=== PATIENT | female | born 1990 | race Caucasian/White ===

== ENCOUNTER 2020-09-14 13:29 | Outpatient (REF) | payer OTHER, SELFPAY ==
[2020-09-14 16:18] LABS: HCG Quantitative < 2 mIU/mL; Thyroid Stimulating Hormone 1.38 uIU/mL (0.32-4.0)
[2020-09-15 21:11] LABS: Follicle Stimulating Hormone 5.7 mIU/mL; Prolactin 3.3 ng/mL
[2020-09-17 17:06] LABS: DHEA Sulfate 248 mcg/dL (18-391)
[2020-09-20 21:36] LABS: Testosterone, Free 5.6 pg/mL (0.1-6.4); Testosterone, Total 30 ng/dL (2-45)
== END 2020-09-14 13:30 | disposition home or self-care (01) ==
LOC: HO.LAB 13:29
PROVIDERS: Visit Provider Advanced Practice Midwife
DX: N92.6 Irregular menstruation, unspecified (principal); L68.0 Hirsutism; B37.3 Candidiasis of vulva and vagina; L73.9 Follicular disorder, unspecified; Z87.42 Personal history of other diseases of the female genital tract; Z30.011 Encounter for initial prescription of contraceptive pills
CPT/HCPCS: 36415; 82627; 83001; 83498; 84146; 84402; 84403; 84443; 84702; 99202

== ENCOUNTER → 2020-09-18 15:16 | Outpatient (BNVA) | payer OTHER, SELFPAY | PROVIDERS: Visit Provider Obstetrics & Gynecology ==

== ENCOUNTER → 2020-10-08 09:54 | Outpatient (BNVA) | payer OTHER, SELFPAY | PROVIDERS: Visit Provider Advanced Practice Midwife ==

== ENCOUNTER → 2020-11-26 10:51 | Outpatient (BNVA) | payer OTHER, SELFPAY | PROVIDERS: Visit Provider Obstetrics & Gynecology | DX: Z13.89 Encounter for screening for other disorder (principal) | CPT/HCPCS: 99212 ==

== ENCOUNTER 2020-11-29 12:30 | Outpatient (REF) | payer OTHER, SELFPAY ==
--- NOTE | 2020-11-29 16:35 | MHC.AU.HAS ---
Hearing Aid Evaluation Date of Visit: 11/29/20 Historical Information: Description of Hearing: Normal sloping to a moderate to severe SNHL in the left ear. Mild to moderate conductive/mixed hearing loss sloping to a severe to profound SNHL hearing loss in the right ear. 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 She did not like the large earmolds she used as a child and had problems with the domes on her most recent hearing aids falling out. Recommending slim tip style molds. Also, patient gets frequent ear infections with drainage and debris. Recommending slim tube style aids, as RICHARD may break more easily due to drainage. Hearing Aid Prescription: Based on the individual?s shared listening needs, communication environments, dexterity, desire for connectivity, and personal preferences, the following prescription for amplification has been made: Right ear: Installer Technician: Phonak Model: Billy M70-CT Battery Size: Rechargeable Color: T3- Micaela Manawa Tubing: Size 1 slim tube Type of Mold: Slim tip Left ear: Left ear prescription to be same as Right Hearing Aid above: Installer Technician: Phonak Model: Billy M70-CT Battery Size: Rechargeable Color: T3- Micaela Manawa Tubing: Size 1 slim tube Type of Mold: Slim tip Action Taken/Action Needed: Earmold Impressions Taken. Medical Clearance to be requested from PCP/ENT. Hearing Fitting to be scheduled when materials arrive Primary Diagnosis: H90.3 Bilateral Sensorineural Hearing Loss Signature: Provider: Rosalva Coyle, CCC-A
--- NOTE | 2020-11-29 16:36 | MHC.AU.ANH ---
Adult Audiological Evaluation Date of Visit: 11/29/20 Reason for Appointment: Audiological evaluation to evaluate the status of Ms. Navarro's hearing and to pursue new hearing aids. Ms. Navarro reports a bilateral hearing loss, worse in her right ear, that is congenital in nature in has been attributed to the prematurity of her . She has previously used hearing aids, with the last set from a clinic in [place] ~4-5 years ago, but has since lost them. Previous Hearing Test Results: At a clinic in [place] ~ 2 years ago. Results not available to be reviewed today. Ear History: Recent Ear Drainage: Both Ears Recent Ear Infections: Both ears, most recent 3 weeks ago Ear Infections in Childhood: Both Ears Previous Ear Surgery: PE tubes at age 8 and age 15 Medical History: Medical History: Right eye buckle surgery 2016, Gall bladder removal 2016 Otoscopy: Right Ear: Cerumen and debris build-up in canal. Unable to view TM. Left Ear: Unremarkable Tympanometry: Tympanometry performed due to: History of middle ear dysfunction Right Ear: Non-compliant Middle Ear System (Type B) Left Ear: Normal Middle Ear System (Type A) Hearing Evaluation: Transducer(s) Used: Insert Earphones, Bone Conduction Method: Conventional Audiometry Stimuli Used: Pure Tones Right Ear: Description of Hearing: Mild hearing loss at 250 Hz, mild conductive hearing loss at 500 Hz, moderately severe mixed hearing loss at 750-1000 Hz, moderately severe sensorineural hearing loss at 1500 Hz, severe sensorineural hearing loss at 2000 Hz, and a profound hearing loss at 9742-7280 Hz. Left Ear: Description of Hearing: Normal hearing from 250-1500 Hz, sloping to a moderate sensorineural hearing loss at 2000 Hz, a severe sensorineural hearing loss at 9209-4926 Hz, and rising to a moderately severe hearing loss at 8000 Hz. Speech Recognition Threshold (SRT): Method Used: Monitored Live Voice Stimuli Used: Spondee Words Right Ear: 50 dBHL Left Ear: 10 dBHL Word Discrimination: Method: Recorded Lists Word Lists Used: NU-6 Right Ear: 80% at 85 dBHL Left Ear: 100% at 70 dBHL Recommendations: Audiological re-evaluation in one year. Trial with amplification is recommended. Medical clearance from a physician is required before fitting. Hearing Aid Fitting will be scheduled when all materials arrive. Referral to Ear, Nose, and Throat to address middle ear dysfunction. Diagnosis: Primary Diagnosis: H90.3 Bilateral Sensorineural Hearing Loss Services Performed: Comprehensive Audiological Evaluation (CPT 73021) Tympanometry (CPT 89442) Signature: Provider: Rosalva Coyle, CCC-A
--- NOTE | 2020-11-29 16:38 | MHC.AU.MED ---
Medical Clearance for Hearing Instrumentation Date: 11/30/20 Patient Name: Shagufta Navarro Date of : 1990 Referring Provider: Sushma Gomes MD We have seen your patient on 11/30/20 and have determined that they are a candidate for amplification (See accompanying report). Specifically, they would benefit from: Hearing aid use in both ears There is a statute that addresses Medical Evaluation Requirements prior to fitting a patient with a hearing aid. According to [place] statute 265 CMR:6.03(1), (a) General. Except as provided in 265 CMR 6.03(1)(b), a teacher of the hearing impaired shall not sell a hearing aid unless the prospective user has presented to the teacher of the hearing impaired a written statement signed by a licensed physician that states that the patient's hearing loss has been medically evaluated and the patient may be considered a candidate for a hearing aid. The medical evaluation must have taken place within the preceding six months. Please note: Due to the [place] Statute referenced above, we cannot accept a signature other than that of a licensed physician. ELEVATOR EXAMINER and PA signatures cannot be accepted. I am in agreement with the above recommendation. There is no medical contraindication for hearing instrumentation. Physician Signature Date Physician Name (Printed)
== END 2020-11-29 12:31 | disposition home or self-care (01) ==
LOC: HO.SH 12:30
PROVIDERS: Visit Provider Internal Medicine
DX: Z46.1 Encounter for fitting and adjustment of hearing aid (principal); H90.3 Sensorineural hearing loss, bilateral
CPT/HCPCS: 92557; 92567; 92591; V5275

== ENCOUNTER 2020-12-20 10:42 | Outpatient (REF) | payer OTHER, SELFPAY | END 2020-12-20 10:43 | disposition home or self-care (01) | LOC: HO.HAP 10:42 | PROVIDERS: Visit Provider Internal Medicine | DX: Z46.1 Encounter for fitting and adjustment of hearing aid (principal); H90.3 Sensorineural hearing loss, bilateral | CPT/HCPCS: V5011; V5020; V5160; V5261; V5264 ==

== ENCOUNTER → 2020-12-21 10:53 | Outpatient (BNVA) | payer OTHER, SELFPAY | PROVIDERS: PCP Internal Medicine; Visit Provider Obstetrics & Gynecology | DX: Z30.09 Encounter for other general counseling and advice on contraception (principal) | CPT/HCPCS: 99212 ==

== ENCOUNTER 2020-12-27 07:09 | Day surgery (SDC) | payer OTHER, SELFPAY ==
--- NOTE | 2020-12-26 10:15 | HO.ANESPROP2 ---
Documented by User: Brianna Jurado 12/26/20 10:15 HPI - Anesthesia Eval Consult details Narrative: 30yo F for Bilateral Salpingectomy Laparoscopic PMFSH Active Problems Active Problems: All Active Problems (Updated 12/26/20 @ 09:01 by Miranda Morin MD) Unwanted fertility (Acute) Hearing loss (Acute) Family planning (Acute) History of PCOS (Acute) BCP ( control pills) initiation (Acute) Acute folliculitis (Acute) Yeast infection involving the vagina and surrounding area (Acute) Past Medical History Medical History Hearing loss Family History Family History Father No problems noted. Mother No problems noted. Maternal Grandmother Myocardial infarction Surgical History Surgical History History of cholecystectomy History of retinal detachment Social History Social History Alcohol intake: never Patient Tobacco Use Status: Never used Tobacco Use of substances other than those prescribed or required for medical reasons: No Have you been hit, kicked, punched, or otherwise hurt by someone within the past year? If so, by whom?: No Are you DNR?: No Advance Directives: No Advance Directives Information Provided: Yes Sexual orientation: Straight/Heterosexual Gender identity: female Meds Allergies Allergy/AdvReac Type Severity Reaction Status Date / Time No Known Allergies Allergy Verified 12/21/20 11:01 Exam Exam Date and Time: December 26, 2020 101 Assessment and Plan Assessment Anesthesia Assessment: Chart Reviewed Documented by User: Siri Ramirez 12/27/20 08:13 PMFSH Past Medical History Medical History Hearing loss Family History Family History Father No problems noted. Mother No problems noted. Maternal Grandmother Myocardial infarction Surgical History Surgical History History of cholecystectomy History of retinal detachment Social History Social History Alcohol intake: never Patient Tobacco Use Status: Never used Tobacco Use of substances other than those prescribed or required for medical reasons: No Have you been hit, kicked, punched, or otherwise hurt by someone within the past year? If so, by whom?: No Are you DNR?: No Advance Directives: No Advance Directives Information Provided: Yes Sexual orientation: Straight/Heterosexual Gender identity: female Meds Allergies Allergy/AdvReac Type Severity Reaction Status Date / Time No Known Allergies Allergy Verified 12/21/20 11:01 Exam Airway Mallampati Class: II TM Dist: >3cm Neck ROM: Full Assessment and Plan Assessment Anesthesia Assessment: Anesthesia Plan Discussed and Chart Reviewed Final Anesthetic Review NPO: Yes ASA Class: I Final Preanesthetic Review: No Changes in Pt Med Stat, Meds/Allgs Chart Reviewed, Consent Obtained/Reviewed and Anes Risks/Benef Reviewed Patient Risk: Low Procedure Risk: Low Assessment/Block/Sedation in SS: Assess/Block/Sedation-SS Anesthetic Plan Anesthetic Plan: GA Disposition: Standard PACU
[2020-12-27] VITALS (9 sets, daily range): BP systolic 109–153; BP diastolic 59–94; PULSE 75–101; RESP 16–19; TEMP 36.1–36.7; O2SAT 94–97; BMI 40.3
[2020-12-27 07:37] LABS: UPreg QC Valid YES; Urine Pregnancy NEGATIVE (NEGATIVE)
[2020-12-27] MEDS: Lactated Ringers 1,000 ML 100 ML IVCONT (07:43)
[2020-12-27] MEDS: Acetaminophen 325 MG TABLET 650 MG PO (07:47)
--- NOTE | 2020-12-27 08:19 | MHC.SHP ---
Pre-Procedural Eval Section A The patient is an INPATIENT: No Changes since office visit: No Cold of Flu in the past 2 weeks, No New Medical Problems, No Changes in Medication and No Patient answered all questions The History & Physical has been completed within 30 days and I have reviewed it.: Yes Section B Chief Complaint: Unwanted Fertility Allergies: Allergies Allergy/AdvReac Type Severity Reaction Status Date / Time No Known Allergies Allergy Verified 12/21/20 11:01 Plan I have reviewed the history and physical and performed a pertinent physical examination on my patient. No changes have occurred unless specified.
--- NOTE | 2020-12-27 08:19 | P.OP_ITS ---
Operative Note Operative Note Date of Service: 12/27/20 Narrative: Pre-Procedure Diagnosis: unwanted fertility Post-Procedure Diagnosis: unwanted fertility Procedures performed: Laparoscopic bilateral salpingectomy Oil Heater Operator: none Complications: none EBL: 100mL Specimens: bilateral fallopian tubes Disposition: Pacu Ms. Cisse is a 30 year old who has completed her family planning and desires a permanent form of sterilization. Surgical Risks: The patient was informed of the risks and benefits of the procedure. Risks included but were not limited to bleeding, infection, injury to the vulva, vagina, or cervix, and uterine perforation. The patient was counseled on the risk of sterilization failure being about 1% on average. The patient was informed that in the event a occurs, the risk of ectopic is increased. The patient expressed understanding of the risks involved, all questions were answered, and the patient consented to the procedure. The patient had valid sterilization consent at the time of the procedure. The patient was taken to the operating room where a time out was performed to confirm correct patient and correct procedure. General anesthesia was established. The patient was then positioned on the operating table in the dorsal lithotomy position with the legs supported using stirrups. All pressure points were padded and a warm blanket was placed to maintain control of core body temperature. The patient was then prepped and draped in the usual sterile fashion. A red rubber catheter was inserted and 100mL urine obtained. A sponge stick was placed in the vagina for uterine manipulation. Attention was turned to the abdomen where a 5mm vertical infraumbilical incision was made. The 5mm trocar was attempted to be introduced under direct visualization using the laparoscopy within the sleeve of the trocar; however, the trocar was not long enough to penetrate the peritoneum. The incision was extended bilaterally for introduction of a Contreras trocar. The Fascia was grasped with alexandra clamps and incised with Yeung scissors. The peritoneum was idenitifed and grasped with Adsons and incised with metzenbaum scissors. The Contreras trocar was introduced through the peritoneal incision. The camera was introduced and pneumoperitoneum was established using carbon dioxide. Inspection of the abdominal cavity showed no gross abnormalities and there was no evidence of injury to the bowel, bladder, or vasculature. Attention was turned to the pelvis. The patient was placed into Trendelenburg position. The fallopian tubes and ovaries were visualized bilaterally. On the patient's left, the ovary was noted to be adherent to the mesentary and ashesions of the fimbriated end of the tube to the posterior pelvic wall were noted. The right tube and ovary were noted to be grossly normal. A small incision was made on the patient's left approximately 2cm superior to and 2cm medial to the left ASIS. A 5mm trocar was introduced through this incision under direct visualization with the laparoscope. A small incision was then made on t he patient's right approximately 2cm superior to and 2cm medial to the right ASIS. A 5mm trocar was introduced through this incision under direct visualization with the laparoscope. The fallopian tubes were inspected bilaterally and the fimbriated ends of the fallopian tube were visualized bilaterally. A filmy adhesion of the left ovary to the mesentary was taken down with the Ligasure device. The distal end of the left tube was grasped and attempted to be lifted up; a second grasper was inserted to retract the bowel and incidentally tore the most distal and of the tube. Being careful to avoid the ovarian vessels, salpingectomy was performed walking the Ligasure device from the medial end of the tear towards the uterine end of the tube, where it was cauterized and cut from the uterus at the cornua and removed through the trocar. Bleeding was noted from the distal end of the torn tube. This was cauterized with the Ligasure device. The distal end of the right tube was then grasped andbeing careful to avoid the ovarian vessels, salpingectomy was performed walking the Ligasure device from the distal to the medial end, where it was cauterized and cut from the uterus at the cornua. Att ention was then turned to the left, where irrigation was performed to confirm good hemostasis. Surgicel was applied to previously torn area to reduce the risk of post-operative bleeding. The tubes were sent to pathology for analysis. The pneumoperitoneum was then evacuated. The laparoscope was removed and the trocar sleeves were removed. The sponge stick was removed from the vagina. The fascia of the umbilical incision was closed with 0-Vicryl and the surgeon's finger was inserted to ensure fascial closure. The 0-vicryl was used to apply a single interrupted suture to close the subcutaneous tissue. The skin incisions were closed each with a single interrupted 3-0 Vicryl suture and Dermabond was applied. Good hemostasis was confirmed. The patient was transferred to the recovery room in stable condition. All needle, sponge, and instrument counts were noted to be correct x2 at the end of the procedure.
[2020-12-27] MEDS: fentaNYL citrate/PF 100 MCG/2 ML VIAL 50 MCG IVPUSH (10:10)
[2020-12-27] MEDS: oxyCODONE HCl Immed Release 5 MG TABLET PO (10:30)
== END 2020-12-27 11:32 | disposition home or self-care (01) ==
LOC: HO.SSS 07:10
PROVIDERS: PCP Internal Medicine; Visit Provider Obstetrics & Gynecology
PROC: (CPT 58661; principal; 2020-12-27 09:00)
DX: Z30.2 Encounter for sterilization (principal); N99.71 Accidental puncture and laceration of a genitourinary system organ or structure during a genitourinary system procedure; N73.6 Female pelvic peritoneal adhesions (postinfective); Y65.8 Other specified misadventures during surgical and medical care; Y76.3 Surgical instruments, materials and obstetric and gynecological devices (including sutures) associated with adverse incidents; Y92.234 Operating room of hospital as the place of occurrence of the external cause; H91.90 Unspecified hearing loss, unspecified ear; Z90.49 Acquired absence of other specified parts of digestive tract
CPT/HCPCS: 58661; 81025; 88302; J1100; J1885; J2250; J2405; J3010

== ENCOUNTER → 2021-01-11 11:37 | Outpatient (BNVA) | payer OTHER, SELFPAY | PROVIDERS: PCP Internal Medicine; Visit Provider Obstetrics & Gynecology | DX: Z09 Encounter for follow-up examination after completed treatment for conditions other than malignant neoplasm (principal) | CPT/HCPCS: 99212 ==

== ENCOUNTER 2021-08-03 16:30 | Emergency (ER) | payer OTHER, SELFPAY ==
--- NOTE | ~2021-08-03 | XR_ITS ---
EXAMINATION: XR CHEST CLINICAL INFORMATION: SOB COMPARISON: None TECHNIQUE: Frontal view of the chest was obtained. FINDINGS: No significant abnormality is noted involving the heart, lungs, mediastinum, bony thorax or soft tissues. XR/XR chest 1V IMPRESSION: Unremarkable chest examination.
[2021-08-03 16:58] VITALS: BP 138/75; PULSE 100; RESP 18; TEMP 36.8; O2SAT 97; BMI 35.4
[2021-08-03 17:24] LABS: COVID-19 Test Negative (Negative)
--- NOTE | 2021-08-03 20:02 | ECG_ITS ---
Test Reason : SOB Blood Pressure : / mmHG Vent. Rate : 102 BPM Atrial Rate : 102 BPM P-R Int : 132 ms QRS Dur : 068 ms QT Int : 346 ms P-R-T Axes : 020 026 020 degrees QTc Int : 450 ms Sinus tachycardia Otherwise normal ECG No previous ECGs available Referred By: Generic ED Physician Electronically Signed By:KIARA AREMNTA
[2021-08-03 20:29] LABS: MANUAL DIFF FLAG NO
[2021-08-03 20:30] LABS: Basophils Percent Auto 0.3 % (0-2); Eosinophils Absolute Auto 0.5 X10*3/uL (0.0-0.4); Eosinophils Percent Auto 4.4 % (0-4); Hematocrit 45.8 % (37.0-47.0); Hemoglobin 15.3 g/dl (12.0-16.0); Imm Gran Abs Auto 0.26 X10*3/uL (0.00-0.03); Imm Gran Pct Auto 2.1 % (0.0-0.4); Lymphocytes Absolute Auto 2.4 X10*3/uL (1.2-4.9); Lymphocytes Percent Auto 19.3 % (20-40); Mean Corpuscular HGB Conc 33.4 g/dl (31.0-35.0); Mean Corpuscular Volume 86.7 fL (80.0-98.0); Mean Platelet Volume 10.8 fL (9.4-12.3); Monocytes Absolute Auto 0.7 X10*3/uL (0.1-1.2); Monocytes Percent Auto 5.6 % (2-11); Neutrophils Absolute Auto 8.5 x10*3/uL (2.0-8.3); Neutrophils Percent Auto 68.3 % (45-73); Platelet Count 278 X10*3/uL (160-400); Red Blood Count 5.28 X10*6/uL (4.20-5.50); Red Cell Distribution Width 12.4 % (11.0-16.0); White Blood Count 12.4 X10*3/uL (4.8-10.8)
[2021-08-03 20:51] LABS: Troponin-I High Sensitivity < 3.5 ng/L (<3.5-17.0)
[2021-08-03 21:05] LABS: Anion Gap 15 (12-20); Blood Urea Nitrogen 8 mg/dL (9-16); Calcium 9.2 mg/dL (8.4-10.2); Carbon Dioxide 25 mmol/L (22-29); Chloride 98 mmol/L (96-108); Creatinine Clr Calc Pharmacy 85.5; Estimated Glomerular Filt Rate > 60; Glucose Random 432 mg/dL (60-115); Potassium 4.3 mmol/L (3.3-5.1); Sodium 134 mmol/L (135-145)
--- NOTE | 2021-08-03 23:17 | ED.GENADULT ---
HPI - General Adult General Chief complaint: General Medical Stated complaint: SOB,chest pain Time Seen by Provider: 08/03/21 21:06 Source: patient Limitations: no limitations History of Present Illness HPI narrative: This is a 30-year-old female who complains of intermittent chest discomfort and shortness of breath which began today at work. Patient denies any fever cough. She denies any pain or swelling in her legs. She is on a control pills. She has not used tobacco. Patient denies ever having had a diagnosis of diabetes. She said she was drinking a lot of orange juice in the waiting room. She denies any nausea vomiting or abdominal pain. She denies any dysuria. Related Data Previous Rx's Medication Instructions Recorded desogestrel 0.15 mg-ethinyl 1 tab PO DAILY 28 Days #28 tab 09/18/20 estradiol 0.03 mg tablet (Apri) acetaminophen 650 mg 650 mg PO Q8H #60 tab 12/26/20 tablet,extended release ibuprofen 800 mg tablet 800 mg PO Q8H #60 tab 12/26/20 oxycodone 5 mg capsule 5 mg PO Q6H PRN #20 cap 12/26/20 metformin 850 mg tablet 850 mg PO DAILY #30 tab 08/04/21 Allergies Allergy/AdvReac Type Severity Reaction Status Date / Time No Known Allergies Allergy Verified 12/21/20 11:01 Review of Systems Review of Systems: Yes all other systems are reviewed and are negative Constitutional: Constitutional: Reports as per HPI and Denies headache(s) Eyes: Eyes: Reports no additional eye complaints ENT: Reports system reviewed and no additional complaints, except as documented and Denies headache(s) Cardiovascular: Cardiovascular: Reports as per HPI Respiratory: Respiratory: Reports as per HPI Gastrointestinal: Gastrointestinal: Denies abdominal pain, Denies nausea and Denies vomiting Neurologic: Denies headache(s) and Denies Sensory deficit (Neuro) [facility] Past Medical History Medical History Hearing loss Surgical History History of cholecystectomy History of retinal detachment Family History Family History Father No problems noted. Mother No problems noted. Maternal Grandmother Myocardial infarction Social History Social History (Updated 01/11/21 @ 11:42 by ALYSSA Aguilar) Alcohol intake: never Patient Tobacco Use Status: Never used Tobacco Advance Directives: No Advance Directives Information Provided: No Patient : No Sexual orientation: Straight/Heterosexual Gender identity: Female Physical Exam Vital Signs: Vital Signs: Last Vital Signs Temp 99.0 F 08/03/21 23:47 Pulse 101 H 08/03/21 23:47 Resp 17 08/03/21 23:47 BP 150/86 H 08/03/21 23:47 Pulse Ox 95 08/03/21 23:47 BMI result Body Mass Index 35.4 Const: Other: Patient sitting up on gurney with legs crossed. Moderately obese. Does not appear uncomfortable. General: cooperative, no acute distress and alert Orientation/consciousness: patient oriented x3 HENMT: Head: Yes normal to inspection Eyes: General: appearance normal, both eyes and all related structures Eyelids: Yes eyelids normal Conjunctivae: conjunctivae normal Pupils: Equal, round and reactive pupils present Neck: Neck: Yes normal visual inspection and Yes supple Chest: Chest palpation & inspection: normal inspection of the chest Resp: Effort & Inspection: normal respiratory effort Auscultation: clear to auscultation bilaterally Cardio: Rate: regular rate Rhythm: regular rhythm Heart sounds: S1 normal heart sound present, S2 normal heart sound present, no gallops, no murmurs and no rubs GI: Palpation (GI): Soft to palpation, nontender and Other GI palpation findings present (Non-distended) Auscultation: normal bowel sounds Skin: General skin exam: no rashes or lesions noted Neuro: General: patient oriented x3, no focal motor deficits and CN's II-XI intact bilaterally Cranial nerves: Yes Equal, round and reactive pupils present Cognition (Neuro): normal cognition Motor exam (neuro): 5/5 motor strength present throughout Sensory Exam: No Sensory deficit (Neuro) Extrem: General: Yes normal to inspection and Yes no pedal edema Psych: Appearance: grossly normal Affect: normal affect Medical Decision Making [facility] Narrative Medical decision making narrative: Patient with a complaint of chest pain of onset today. Patient seems concerned about COVID and was reassured that her COVID test was negative. EKG did show borderline tachycardia with a rate of 102. Patient does have an elevated glucose at around 04:30. Patient was given normal saline 1 L IV also insulin 8 units subcutaneous. Patient likely has new onset type 2 diabetes. Hemoglobin A1c has been sent so the patient's primary care physician can refer to this. Patient is being started on metformin 850 mg daily. With regard to the patient's chest pain, EKG shows no concerning changes. Pain not pleuritic, D-dimer negative in the setting of low suspicion for PE. Chest x-ray negative Lab Data Lab results reviewed: Yes I reviewed the patient's lab results. Result diagrams: 08/03/21 20:25 08/03/21 20:25 Labs: Lab Results 08/03/21 08/03/21 08/03/21 Range/Units 17:03 20:25 20:25 WBC 12.4 H (4.8-10.8) X10*3/uL RBC 5.28 (4.20-5.50) X10*6/uL Hgb 15.3 (12.0-16.0) g/dl Hct 45.8 (37.0-47.0) % MCV 86.7 (80.0-98.0) fL MCH 29.0 (27.0-33.0) pg MCHC 33.4 (31.0-35.0) g/dl RDW 12.4 (11.0-16.0) % Plt Count 278 (160-400) X10*3/uL MPV 10.8 (9.4-12.3) fL Immature Gran % (Auto) 2.1 H (0.0-0.4) % Neut % (Auto) 68.3 (45-73) % Lymph % (Auto) 19.3 L (20-40) % [place] % (Auto) 5.6 (2-11) % Eos % (Auto) 4.4 H (0-4) % Baso % (Auto) 0.3 (0-2) % Lymph # (Auto) 2.4 (1.2-4.9) X10*3/uL [place] # (Auto) 0.7 (0.1-1.2) X10*3/uL Eos # (Auto) 0.5 H (0.0-0.4) X10*3/uL Baso # (Auto) 0.0 (0.0-0.2) X10*3/uL Abs Immat Gran (auto) 0.26 H (0.00-0.03) X10*3/uL Absolute Neuts (auto) 8.5 H (2.0-8.3) x10*3/uL Absolute Nucleated RBC 0.000 (0.0-0.012) X10*3/uL Nucleated RBC % (auto) 0.0 (0.0-0.2) /100WBC D-Dimer High Sensitivty NG/ML Sodium 134 L (135-145) mmol/L Potassium 4.3 (3.3-5.1) mmol/L Chloride 98 (96-108) mmol/L Carbon Dioxide 25 (22-29) mmol/L Anion Gap 15 (12-20) BUN 8 L (9-16) mg/dL Creatinine 0.78 (0.5-1.4) mg/dL Estim Creat Clear Calc 85.5 Estimated GFR > 60 POC Glucose (60-115) mg/dL Random Glucose 432 H* (60-115) mg/dL Calcium 9.2 (8.4-10.2) mg/dL Troponin I High Sens (<3.5-17.0) ng/L COVID-19 (ADELA) Negative (Negative) COVID-19 Clin Com See Note 08/03/21 08/03/21 08/04/21 Range/Units 20:25 23:48 00:16 WBC (4.8-10.8) X10*3/uL RBC (4.20-5.50) X10*6/uL Hgb (12.0-16.0) g/dl Hct (37.0-47.0) % MCV (80.0-98.0) fL MCH (27.0-33.0) pg MCHC (31.0-35.0) g/dl RDW (11.0-16.0) % Plt Count (160-400) X10*3/uL MPV (9.4-12.3) fL Immature Gran % (Auto) (0.0-0.4) % Neut % (Auto) (45-73) % Lymph % (Auto) (20-40) % [place] % (Auto) (2-11) % Eos % (Auto) (0-4) % Baso % (Auto) (0-2) % Lymph # (Auto) (1.2-4.9) X10*3/uL [place] # (Auto) (0.1-1.2) X10*3/uL Eos # (Auto) (0.0-0.4) X10*3/uL Baso # (Auto) (0.0-0.2) X10*3/uL Abs Immat Gran (auto) (0.00-0.03) X10*3/uL Absolute Neuts (auto) (2.0-8.3) x10*3/uL Absolute Nucleated RBC (0.0-0.012) X10*3/uL Nucleated RBC % (auto) (0.0-0.2) /100WBC D-Dimer High Sensitivty < 150 NG/ML Sodium (135-145) mmol/L Potassium (3.3-5.1) mmol/L Chloride (96-108) mmol/L Carbon Dioxide (22-29) mmol/L Anion Gap (12-20) BUN (9-16) mg/dL Creatinine (0.5-1.4) mg/dL Estim Creat Clear Calc Estimated GFR POC Glucose 325 H (60-115) mg/dL Random Glucose (60-115) mg/dL Calcium (8.4-10.2) mg/dL Troponin I High Sens < 3.5 (<3.5-17.0) ng/L COVID-19 (ADELA) (Negative) COVID-19 Clin Com Imaging Data Chest x-ray: Radiologist's impression: FINDINGS: No significant abnormality is noted involving the heart, lungs, mediastinum, bony thorax or soft tissues. XR/XR chest 1V IMPRESSION: Unremarkable chest examination. ECG Data Attestation: I personally reviewed and interpreted this ECG as follows: Prior ECG tracings: not available for review Interpretation: Sinus tachycardia with a rate of 102. No ST elevation depression. Normal QRS axis. Discharge Plan Discharge Clinical Impression: Acute hyperglycemia, New onset type 2 diabetes mellitus Patient Disposition: Home, Self-Care Instructions: Type 2 Diabetes in Adults: New Diagnosis (ED), How to Check your Blood Sugar (ED) Additional Instructions: Drink plenty of water. Avoid eating sugary foods or liquids, and avoid carbohydrates such as bread, rice, potatoes. Follow-up with your primary care physician in the next few weeks for re-evaluation and possible medication adjustment. Start metformin as prescribed. Prescriptions: New metformin 850 mg tablet 850 mg PO DAILY Qty: 30 RF: 1 No Action ibuprofen 800 mg tablet 800 mg PO Q8H Qty: 60 RF: 1 acetaminophen 650 mg tablet extended release 650 mg PO Q8H Qty: 60 RF: 1 oxycodone 5 mg capsule 5 mg PO Q6H PRN (Reason: pain) Qty: 20 RF: 0 desogestrel-ethinyl estradiol [Apri] 0.15-0.03 mg tablet 1 tab PO DAILY 28 Days Qty: 28 RF: 2
[2021-08-03 23:47] VITALS: BP 150/86; PULSE 101; RESP 17; TEMP 37.2; O2SAT 95
[2021-08-03] MEDS: 0.9 % Sodium Chloride 1,000 ML 999 ML IV (23:56)
[2021-08-03 23:59] LABS: Glucose, Whole Blood 325 mg/dL (60-115)
[2021-08-03] MEDS: Insulin Lispro 100 UNIT/ML 3 ML VIAL 8 UNIT SUBCUT (23:59)
--- NOTE | 2021-08-04 00:10 | PC.NURSE ---
Pt resting on stretcher in NAD, breathing with ease on RA, skin warm dry and normal in appearance for age and race. Pt endorses MSCP with inspiration, otherwise offers no complaints/concerns. Pt stretcher in lowest locked position, rails raised, call ayon within reach.
[2021-08-04 00:43] LABS: D Dimer High Sensitivity < 150 NG/ML
[2021-08-04 01:54] VITALS: BP 127/85; PULSE 93; RESP 18; O2SAT 99
[2021-08-04 01:57] LABS: Glucose, Whole Blood 285 mg/dL (60-115)
--- NOTE | 2021-08-04 02:17 | PC.NURSE ---
Dr Elkins aware of repeat BGL; OK for DC
[2021-08-04 07:55] LABS: Estimated Average Glucose 298 mg/dL
== END 2021-08-04 02:27 | disposition home or self-care (01) ==
PROVIDERS: Emergency Provider Emergency Medicine
DX: E11.65 Type 2 diabetes mellitus with hyperglycemia (principal); Z20.822 Contact with and (suspected) exposure to COVID-19; R07.9 Chest pain, unspecified; R06.02 Shortness of breath; Z79.899 Other long term (current) drug therapy
CPT/HCPCS: 36415; 71045; 80048; 82947; 83036; 84484; 85025; 85379; 87635; 93005; 96360; 96372; 99284

== ENCOUNTER 2021-08-30 07:59 | Outpatient (REF) | payer BC, OTHER, SELFPAY ==
[2021-08-30 09:14] LABS: Creatinine Urine 129.05 mg/dL; Microalbum/Creatinine Ratio Ur 344.8 ug/mg cr
[2021-09-04 15:17] LABS: Glutamic acid decarboxylase Ab <5 IU/mL (<5)
[2021-09-07 21:37] LABS: Insulin Auto Antibody <0.4 U/mL (<0.4)
== END 2021-08-30 08:00 | disposition home or self-care (01) ==
LOC: HO.LAB 07:59
PROVIDERS: PCP Internal Medicine; Visit Provider Nurse Practitioner Family
DX: E11.9 Type 2 diabetes mellitus without complications (principal)
CPT/HCPCS: 36415; 82043; 86337; 86341

== ENCOUNTER → 2021-11-05 12:37 | Outpatient (BNVA) | payer BC, OTHER, SELFPAY | PROVIDERS: PCP Internal Medicine; Visit Provider Internal Medicine Endocrinology, Diabetes & Metabolism | DX: E11.65 Type 2 diabetes mellitus with hyperglycemia (principal); Z79.84 Long term (current) use of oral hypoglycemic drugs | CPT/HCPCS: 82947; 83036; 99202 ==

== ENCOUNTER → 2021-11-27 11:32 | Outpatient (BNVA) | payer OTHER, SELFPAY | PROVIDERS: PCP Internal Medicine; Visit Provider Dietitian, Registered | DX: E11.65 Type 2 diabetes mellitus with hyperglycemia (principal) | CPT/HCPCS: 97802 ==

== ENCOUNTER → 2021-12-24 14:34 | Outpatient (BNVA) | payer OTHER, SELFPAY | PROVIDERS: PCP Internal Medicine; Visit Provider Registered Nurse Diabetes Educator | DX: E11.65 Type 2 diabetes mellitus with hyperglycemia (principal); Z79.84 Long term (current) use of oral hypoglycemic drugs | CPT/HCPCS: 99211 ==

== ENCOUNTER 2022-05-14 07:42 | Outpatient (REF) | payer OTHER, SELFPAY ==
[2022-05-14 09:36] LABS: Alanine Aminotransferase 51 U/L (0-31); Albumin Level 4.1 g/dL (3.5-5.0); Alkaline Phosphatase 108 U/L (39-117); Anion Gap 16 (12-20); Aspartate Amino Transferase 30 U/L (5-31); Bilirubin Total 0.6 mg/dL (0.0-1.0); Blood Urea Nitrogen 9 mg/dL (9-16); Calcium 9.1 mg/dL (8.4-10.2); Carbon Dioxide 25 mmol/L (22-29); Chloride 100 mmol/L (96-108); Cholesterol 172 mg/dL; Estimated Glomerular Filt Rate > 60; Glucose Fasting 308 mg/dL (60-99); HDL Cholesterol 33 mg/dL; LDL Cholesterol Calculated 94 mg/dl; Potassium 4.3 mmol/L (3.3-5.1); Sodium 137 mmol/L (135-145); Total Protein 6.8 g/dL (6.5-8.0); Triglycerides 228 mg/dL
[2022-05-14 09:43] LABS: Creatinine Urine 271.53 mg/dL
[2022-05-14 09:49] LABS: Vitamin D 25-OH Total 19.6 ng/mL (>30)
[2022-05-14 10:18] LABS: Microalbum/Creatinine Ratio Ur 1636.2 ug/mg cr
== END 2022-05-14 07:43 | disposition home or self-care (01) ==
LOC: HO.LAB 07:42
PROVIDERS: PCP Internal Medicine; Visit Provider Internal Medicine
DX: E66.01 Morbid (severe) obesity due to excess calories (principal); E55.9 Vitamin D deficiency, unspecified; E78.5 Hyperlipidemia, unspecified; E11.9 Type 2 diabetes mellitus without complications
CPT/HCPCS: 36415; 80053; 80061; 82043; 82306

== ENCOUNTER 2022-09-01 14:24 | Outpatient (REF) | payer OTHER, SELFPAY ==
[2022-09-01 15:49] LABS: Influenza A PCR NEGATIVE (Negative); Influenza B PCR NEGATIVE (Negative); Resp Syncy Virus RNA Qual PCR NEGATIVE (Negative); SARS COV2 PCR INHOUSE NEGATIVE (Negative)
== END 2022-09-01 14:25 | disposition home or self-care (01) ==
LOC: HO.LAB 14:24
PROVIDERS: PCP Internal Medicine; Visit Provider Internal Medicine
DX: Z20.822 Contact with and (suspected) exposure to COVID-19 (principal); R09.89 Other specified symptoms and signs involving the circulatory and respiratory systems
CPT/HCPCS: 0241U

== ENCOUNTER 2022-09-23 13:43 | Outpatient (REF) | payer OTHER, SELFPAY ==
[2022-09-24 09:16] LABS: CT PCR NOT DETECTED (Not Detect.); NG PCR NOT DETECTED (Not Detect.)
[2022-09-24 09:38] LABS: BV Int Neg Control Negative (Negative); BV Int Pos Control Positive (Positive)
== END 2022-09-23 13:44 | disposition home or self-care (01) ==
LOC: HO.LNP 13:43
PROVIDERS: PCP Internal Medicine; Visit Provider Advanced Practice Midwife
DX: Z01.419 Encounter for gynecological examination (general) (routine) without abnormal findings (principal); E66.01 Morbid (severe) obesity due to excess calories; E11.65 Type 2 diabetes mellitus with hyperglycemia; B37.31 Acute candidiasis of vulva and vagina; Z79.899 Other long term (current) drug therapy; Z79.4 Long term (current) use of insulin; Z68.41 Body mass index [BMI] 40.0-44.9, adult; Z87.42 Personal history of other diseases of the female genital tract; Z11.3 Encounter for screening for infections with a predominantly sexual mode of transmission
CPT/HCPCS: 0353U; 87070; 87077; 87147; 87186; 87205; 87480; 87510; 87660; 88142

== ENCOUNTER 2024-10-03 11:51 | Outpatient (REF) | payer OTHER, SELFPAY ==
--- NOTE | ~2024-10-03 | XR_ITS ---
EXAMINATION: XR SHOULDER 2 OR MORE VIEWS RIGHT HISTORY: 5 month h/o atraumatic right shoulder pain COMPARISON: There are no prior studies available for comparison. FINDINGS: Six views of the right shoulder are submitted. Osseous mineralization is normal. There is no fracture or dislocation. The joint spaces are preserved. The soft tissues are unremarkable. XR/XR shoulder RT min 2V IMPRESSION: Unremarkable examination of the right shoulder. Electronically signed by: Bryan Sorensen MD 10/03/2024 01:08 PM EDT
--- OUTSIDE RECORDS SUMMARY | 2024-10-03 14:07 | XMS_ITS | Encounter Summary ---
Author Organization [facility] Address [address] [place] [address] 7 [place] [address] Care Team Providers Care Vulcanizing Machine Operator Name Role Phone Unavailable Primary Care Provider Unavailabl e Reason for Referral * Consultation (Routine) - Pending Review Specialty Diagnoses / Procedures Referred By Eduarda celis Referred To Contact Audiology Diagnoses Hearing impaired person, bilateral Koffi Apple MD [address] [place] [phone] Phone: tel: fax: Referral ID Status Reason Start Date Expiration Date Visits Requested Visits Authorized [id number] Pending Review Specialty Services Required 10/03/2024 10/03/2025 1 1 * Consultation (Routine) - Pending Review Specialty Diagnoses / Procedures Referred By Eduarda celis Referred To Contact Orthopaedic Surgery Diagnoses Chronic right shoulder pain Koffi Apple MD [address] [place] [phone] Phone: tel: fax: Referral ID Status Reason Start Date Expiration Date Visits Requested Visits Authorized [id number] Pending Review Specialty Services Required 10/03/2024 10/03/2025 1 1 Reason for Visit * Reason Comments Shoulder Pain Nasal Congestion Encounter Details Date Type Department Care Team (Late st Contact Info) Description 10/03/2024 10:40 AM EDT Office Visit [facility] [address] [place] [phone] Koffi Apple MD [address] [place] [phone] Chronic right shoulder pain (Primary Dx); Elevated blood pressure reading in office without diagnosis of hypertension; Hearing impaired person, bilateral; Seasonal allergies Social History Tobacco Use Types Packs/Day Years Used Date Smoking Tobacco: Never Passive Smoke Exposure: Never Smokeless Tobacco: Never Tobacco Cessation:Counseling Given: Not Answered Comments Unknown Sex and Gender Information Value Date Recorded Sex Assigned at Female 10/03/2024 10:19 AM EDT Legal Sex Female 10:17 AM EDT Gender Identity Female 10/03/2024 10:28 AM EDT Sexual Orientation Straight 10/03/2024 10 :56 AM EDT documented as of this encounter Last Filed Vital Signs Vital Sign Reading Time Taken Comments Blood Pressure 140/90 10/03/2024 10:41 AM EDT Pulse 69 10/03/2024 10:41 AM EDT Temperature 36.8 ??C (98.2 ??F) 10/03/2024 1 1:12 AM EDT Respiratory Rate 18 10/03/2024 10:4 1 AM EDT Oxygen Saturation 97% 10/03/2024 10: 41 AM EDT Inhaled Oxygen Concentration - - Weight 80.6 kg (177 lb 12.8 oz) 025 10:41 AM EDT Height 142.2 cm (4' 8 ) 10/03/2024 10:4 1 AM EDT Body Mass Index 39.86 10/03/2024 10:41 AM EDT documented in this encounter Progress Notes * Koffi Apple MD - 10/03/2024 10:40 AM EDT Subjective Patient ID: Shagufta Cisse is a 33 y.o. female, new patient. Last saw PCP 2 years ago at [facility]. HPI Shagufta had onset 5 months ago of right shoulder pain that started at work, worse with lifting heavy objects at work. Pain is improved when at home. Ice and heat, IcyHot, ibuprofen, Tylenol, lidocaine patches don't help. Right-handed. Also had onset yesterday of runny nose, sneezing which she states always starts in late September due to allergies. 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 Past surgical hx: Had both fallopian tubes removed for control. Laparoscopic cholecystectomy. Lives with and child and 5 yo son. LMP=2/10. Works at [employer]. Never smoked. No EtOH. No Illicit substances. The following portions of the chart were reviewed this encounter and updated as appropriate: Tobacco Allergies Meds Problems Med Hx Surg Hx Fam Hx Review of Systems Constitutional: Negative for fever. HENT: Positive for hearing loss, rhinorrhea and sneezing. Respiratory: Negative for shortness of breath. Cardiovascular: Negative for chest pain. Gastrointestinal: Negative for abdominal pain. Musculoskeletal: Positive for arthralgias. Skin: Negative for rash. Neurological: Negative for headaches. Objective Physical Exam Constitutional: Appearance: Normal appearance. HENT: Right Ear: Tympanic membrane, ear canal and external ear normal. Left Ear: Tympanic membrane, ear canal and external ear normal. Nose: Nose normal. Mouth/Throat: Mouth: Mucous membranes are moist. Pharynx: Oropharynx is clear. Eyes: Conjunctiva/sclera: Conjunctivae normal. Pupils: Pupils are equal, round, and reactive to light. Cardiovascular: Rate and Rhythm: Normal rate and regular rhythm. Heart sounds: No murmur heard. Pulmonary: Effort: Pulmonary effort is normal. Breath sounds: Normal breath sounds. Musculoskeletal: General: Normal range of motion. Cervical back: No tenderness. Comments: Right shoulder: Mild tenderness anteriorly and superiorly. Full range of motion. Skin: Findings: No rash. Neurological: Mental Status: She is alert. Gait: Gait is intact. Psychiatric: Mood and Affect: Mood normal. Behavior: Behavior normal. Procedures Assessment/Plan Diagnoses and all orders for this visit: Chronic right shoulder pain Prescribed tizanidine. X-rays done in [facility] appear to show no acute finding when I reviewed images. Will call pt if radiologist reading differs. Referred to orthopedic surgery. - XR Shoulder 2+ Views Right; Future Elevated blood pressure reading in office without diagnosis of hypertension Prescribed home BP monitor. Reviewed BP parameters, given written BP log that includes BP parameters, to keep daily. Call if BP readings are elevated. Hearing impaired person, bilateral Referred to audiology Seasonal allergies Rapid strep, COVID, and influenza testing is negative. Prescribed Claritin which she has used in the past with relief. Return to clinic if not improving - Influenza B (ID NOW Rapid Molecular) - Influenza A (ID NOW Rapid Molecular) - POCT Rapid COVID Ag - POCT rapid strep A manually resulted Other orders - tiZANidine (Zanaflex) 2 MG tablet; Take 1 tablet (2 mg) by mouth every 6 (six) hours if needed for muscle spasms for up to 10 days. - loratadine (Claritin) 10 MG tablet; Take 1 tablet (10 mg) by mouth Once per day. - Blood Pressure kit; 1 each 2 times daily. documented in this encounter Plan of Treatment Upcoming Encounters Date Type Department Care Team (Late st Contact Info) Description 01/11/2025 2:00 PM EDT Office Visit [facility] [address] [place], [place] [phone] Ifrah Adair NP [address] [place], [place] [phone] Scheduled Referrals Name Type Priority Associated Diagnoses Order Schedule Referral to Orthopaedic Surgery Outpatient Referral Routine Chronic right shoulder pain Expected: 10/03/2024 (Approximate), Expires: 10/03/2025 Referral to Audiology Outpatient Referral Routine Hearing impaired person, bilateral Expected: 10/03/2024 (Approximate), Expires: 10/03/2025 documented as of this encounter Procedures Procedure Name Priority Date/Time Associated Diagnosis Comments XR SHOULDER 2+ VIEWS RIGHT Routine 10/03/2024 11:51 AM EDT Chronic right shoulder pain POCT INFLUENZA B (ID NOW RAPID MOLECULAR) Routine 10/03/2024 11:13 AM EDT Seasonal allergies POCT INFLUENZA A (ID NOW RAPID MOLECULAR) Routine 10/03/2024 11:13 AM EDT Seasonal allergies POCT RAPID COVID ANTIGEN Routine 10/03/2024 11:13 AM EDT Seasonal allergies POCT RAPID STREP A Routine 10/03/2024 11 :13 AM EDT Seasonal allergies documented in this encounter Results * XR Shoulder 2+ Views Right (10/03/2024 11:51 AM EDT) Anatomical Region Laterality Modality Upper Extremities, Shoulder Right Radi ographic Imaging 10/03/2024 11:5 1 AM EDT Narrative 10/03/2024 1:10 PM EDT ?[facility] ?[address] ?[place] [address] ?XRay Report ? Signed ? Patient: Cisse,Shagufta ?MR#: [id number] ?? [id number] ? : 1990 ?Acct:[id number] ? Age/Sex: 33 / F ?ADM Date: 10/03/24 ? Loc: HO.HHCX ? Attending Dr: Koffi Apple MD ? Ordering Physician: KOFFI APPLE MD ?? Date of Service: 10/03/24 ?? Procedure(s): XR shoulder RT min 2V ?? Accession Number(s): [id number] ? cc: KOFFI APPLE MD ? EXAMINATION: ??XR SHOULDER 2 OR MORE VIEWS RIGHT ? HISTORY: 5 month h/o atraumatic right shoulder pain ? COMPARISON: There are no prior studies available for comparison. ? FINDINGS: ? Six views of the right shoulder are submitted. ??Osseous mineralization ?? is normal. ??There is no fracture or dislocation. ??The joint spaces are ?? preserved. ??The soft tissues are unremarkable. ? XR/XR shoulder RT min 2V ?? IMPRESSION: ? Unremarkable examination of the right shoulder. ? Electronically signed by: ??Bryan Sorensen MD ??10/03/2024 01:08 PM EDT ?? RP ? Dictated By: ?Bryan Sorensen MD ? Signed By: ?<Electronically signed by Bryan Sorensen MD in OV> ?10/03/24 1308 ? DD/ 1151 ? TD/TT: 10/03/24 1200 ? Supervisor Malted Milk: ? Procedure Note Carli Lebron - 10/03/[address] [address] XRay Report Signed Patient: Og Cisse#: [id number] : 1990Acct:[id number] Age/Sex: 33 / FADM Date: 10/03/24 Loc: HO.HHCX Attending Dr: Koffi Apple MD Ordering Physician: KOFFI APPLE MD Date of Service: 10/03/24 Procedure(s): XR shoulder RT min 2V Accession Number(s): [id number] cc: KOFFI APPLE MD EXAMINATION: XR SHOULDER 2 OR MORE VIEWS RIGHT HISTORY: 5 month h/o atraumatic right shoulder pain COMPARISON: There are no prior studies available for comparison. FINDINGS: Six views of the right shoulder are submitted. Osseous mineralization is normal. There is no fracture or dislocation. The joint spaces are preserved. The soft tissues are unremarkable. XR/XR shoulder RT min 2V IMPRESSION: Unremarkable examination of the right shoulder. Electronically signed by: Bryan Sorensen MD 10/03/2024 01:08 PM EDT RP Dictated By: Bryan Sorensen MD Signed By: <Electronically signed by Bryan Sorensen MD in OV> 10/03/24 1308 DD/ 1151 TD/TT: 10/03/24 1200 Supervisor Malted Milk: Koffi Apple MD IMG XR PROCEDURES Final Result * POCT rapid strep A manually resulted (10/03/2024 11:13 AM EDT) [facility] Rapid Strep A Screen Negative Negative, None Detected Swab 10/03/2024 11:1 3 AM EDT Koffi Apple MD POINT OF CARE TEST ENTER/EDIT OR DERABLES Final Result * POCT Rapid COVID Ag (10/03/2024 11:13 AM EDT) [facility] Rapid COVID Ag Negative Swab 10/03/2024 11:1 3 AM EDT Koffi Apple MD POINT OF CARE TEST ENTER/EDIT OR DERABLES Final Result * Influenza A (ID NOW Rapid Molecular) (10/03/2024 11:13 AM EDT) Pathologist [facility] Influenza A Negative Negative, Indeterminate [facility] Swab 10/03/2024 11:1 3 AM EDT us Koffi Apple MD POINT OF CARE TEST ENTER/EDIT OR DERABLES Final Result Performing Organization Address City/[facility]/ZIP Co de Phone Number [facility] [address] [place] [address] [phone] * Influenza B (ID NOW Rapid Molecular) (10/03/2024 11:13 AM EDT) Influenza B Negative Negative, Indeterminate [facility] Swab 10/03/2024 11:1 3 AM EDT us Koffi Apple MD POINT OF CARE TEST ENTER/EDIT OR DERABLES Final Result Performing Organization Address [facility] Co de Phone Number [facility] [address] [place] [address] [phone] documented in this encounter Visit Diagnoses Diagnosis Chronic right shoulder pain- Primary Pain in joint, shoulder region Elevated blood pressure reading in office without diagnosis of hypertension Hearing impaired person, bilateral Seasonal allergies Allergic rhinitis, cause unspecified documented in this encounter
--- OUTSIDE RECORDS SUMMARY | 2024-10-03 14:07 | XMS_ITS | Encounter Summary ---
Author Organization [employer] Address [address] [place] [address] Care Team Providers Care Jewel Sawyer Name Role Phone Unavailable Primary Care Provider Unavailabl e Encounter Details Date Type Department Care Team (Latest Contact Info) Description 10/03/2024 Travel Social History Tobacco Use Types Packs/Day Years Used Date Smoking Tobacco: Never Passive Smoke Exposure: Never Smokeless Tobacco: Never Comments Unknown Sex and Gender Information Value Date Recorded Sex Assigned at Female 10/03/2024 10:19 AM EDT Legal Sex Female 10:17 AM EDT Gender Identity Female 10/03/2024 10:28 AM EDT Sexual Orientation Straight 10/03/2024 10 :56 AM EDT documented as of this encounter Plan of Treatment Upcoming Encounters Date Type Department Care Team ( st Contact Info) Description 01/11/2025 2:00 PM EDT Office Visit [facility] [address] [place] [address] Ifrah Adair NP [address] [place] [address] documented as of this encounter Visit Diagnoses Not on filedocumented in this encounter
--- OUTSIDE RECORDS SUMMARY | 2024-10-03 14:07 | XMS_ITS | Clinical Summary ---
Author Organization [employer] Address [address] [place] [address] Care Team Providers Care Lumber Grader Name Role Phone Unavailable Primary Care Provider Unavailabl e Allergies No known active allergies Medications tiZANidine (Zanaflex) 2 MG tablet Take 1 tablet (2 mg) by mouth every 6 (six) hours if needed for muscle spasms for up to 10 days. 30 tablet 10/03/2024 5 Active loratadine (Claritin) 10 MG tablet Take 1 tablet (10 mg) by mouth Once per day. 30 tablet 3 10/03/2024 6 Active Blood Pressure kit 1 each 2 times daily. 1 kit 10/03/2024 6 Active Active Problems Problem Noted Date Diagnosed Date Hearing impaired person, bilateral 10/03/2024 Encounters Date Type Department Care Team Description 10/03/2024 10:40 AM EDT Office Visit [facility] [address] [address] Koffi Apple MD Chronic right shoulder pain (Primary Dx); Elevated blood pressure reading in office without diagnosis of hypertension; Hearing impaired person, bilateral; Seasonal allergies 10/03/2024 Travel from Last 3 Months Social History Tobacco Use Types Packs/Day Years Used Date Smoking Tobacco: Never Passive Smoke Exposure: Never Smokeless Tobacco: Never Tobacco Cessation:Counseling Given: Not Answered Comments Unknown Sex and Gender Information Value Date Recorded Sex Assigned at Female 10/03/2024 10:19 AM EDT Legal Sex Female 10:17 AM EDT Gender Identity Female 10/03/2024 10:28 AM EDT Sexual Orientation Straight 10/03/2024 10 :56 AM EDT Last Filed Vital Signs Vital Sign Reading [...] Mass Index 39.86 10/03/2024 10:41 AM EDT Plan of Treatment Upcoming Encounters Date Type Department Care Team (Late st Contact Info) Description 01/11/2025 2:00 PM EDT Office Visit [facility] [address] [place], [place] [phone] Ifrah Adair NP [address] [place] [address] Health Maintenance Due Date Last Done Comments Depression Screening 1990 HIV Screening 1990 SDOH Screening 1992 Alcohol/Substance Use Screening 2004 Family Planning (PISQ) 11/19/2007 Hepatitis C Screening 2010 DTaP/Tdap/Td Vaccines (1 - Tdap) 11/19/2011 Hepatitis B Vaccines (1 of 3 - 19+ 3-dose series) 11/19/2011 Pap Smear 2013 Cervical Cancer Screening 2022 HPV/Cotest 2022 COVID-19 Vaccine (3 - 2023-2 5 season) 2024 05/09/2022, 08/09/2021 Influenza Vaccine (#1) 2024 Tobacco Screening 10/03/2025 10/03/2024 Zoster Vaccines (1 of 2) 2042 RSV Patients and Patients Aged 60 years or older (1 - 1-dose 75+ series) 11/19/2067 HIB Vaccines Aged Out No longer eligi ble based on patient's age to complete this topic HPV Vaccines Aged Out No longer eligi ble based on patient's age to complete this topic Hepatitis A Vaccines Aged Out No long er eligible based on patient's age to complete this topic IPV Vaccines Aged Out No longer eligi ble based on patient's age to complete this topic Meningococcal Vaccine Aged Out No leonel ritika eligible based on patient's age to complete this topic Pneumococcal Vaccine: Pediatrics (0 to 5 Years) and At-Risk Patients (6 to 49) Years) Aged Out No longer eligible b ased on patient's age to complete this topic RSV under 20 months Aged Out No longe r eligible based on patient's age to complete this topic Rotavirus Vaccines Aged Out No longer eligible based on patient's age to complete this topic Procedures Procedure Name Priority Date/Time Associated Diagnosis Comments XR SHOULDER 2+ VIEWS RIGHT Routine 10/03/2024 11:51 AM EDT Chronic right shoulder pain POCT RAPID STREP A Routine 10/03/2024 11 :13 AM EDT Seasonal allergies POCT RAPID COVID ANTIGEN Routine 10/03/2024 11:13 AM EDT Seasonal allergies POCT INFLUENZA A (ID NOW RAPID MOLECULAR) Routine 10/03/2024 11:13 AM EDT Seasonal allergies POCT INFLUENZA B (ID NOW RAPID MOLECULAR) Routine 10/03/2024 11:13 AM EDT Seasonal allergies from Last 3 Months Results * XR Shoulder 2+ Views Right (10/03/2024 11:51 AM EDT) Anatomical Region Laterality Modality Upper Extremities, Shoulder Right Radi ographic Imaging 10/03/2024 11:5 1 AM EDT Narrative 10/03/2024 1:10 PM EDT ?[facility] ?[address] ?[place] [address] ?XRay Report ? Signed ? Patient: Cisse,Shagufta ?MR#: [id number] ?? [id number] ? : 1990 ?Acct:[id number] ? Age/Sex: 33 / F ?ADM Date: 03/17/25 ? Loc: HO.HHCX ? Attending Dr: Koffi Apple MD ? Ordering Physician: KOFFI APPLE MD ?? Date of Service: 10/03/24 ?? Procedure(s): XR shoulder RT min 2V ?? Accession Number(s): [id number] ? cc: KOFFI APPLE MD ? EXAMINATION: [...] ??Bryan Sorensen MD ??10/03/2024 01:08 PM EDT ? Dictated By: ?Bryan Sorensen MD ? Signed By: ?<Electronically signed by Bryan Sorensen MD in OV> ?10/03/24 1308 ? DD/ 1151 ? TD/TT: 10/03/24 1200 ? Interactive Media Director: ? Procedure Note [place], Image - 10/03/[address] [address] XRay Report Signed Patient: Og Cisse#: [id number] : 1990Acct:[id number] Age/Sex: 33 / FADM Date: 10/03/24 Loc: HO.HHCX Attending Dr: Koffi Apple MD Ordering Physician: KOFFI APPLE MD Date of Service: 10/03/24 Procedure(s): XR shoulder RT min 2V Accession Number(s): [id number] cc: KOFFI APPLE MD EXAMINATION: XR SHOULDER [...] 10/03/24 1308 DD/ 1151 TD/TT: 10/03/24 1200 Interactive Media Director: us Koffi Apple MD IMG XR PROCEDURES Final Result * Influenza B (ID NOW Rapid Molecular) (10/03/2024 11:13 AM EDT) [facility] Influenza B Negative Negative, Indeterminate [facility] Swab 10/03/2024 11:1 3 AM EDT us Koffi Apple MD POINT OF CARE TEST ENTER/EDIT OR DERABLES Final Result Performing Organization Address [facility] Co de Phone Number [facility] [address] [place] [phone] * Influenza A (ID NOW Rapid Molecular) (10/03/2024 11:13 AM EDT) [facility] Influenza A Negative Negative, Indeterminate [facility] Swab 10/03/2024 11:1 3 AM EDT us Koffi Apple MD POINT OF CARE TEST ENTER/EDIT OR DERABLES Final Result Performing Organization Address [facility] de Phone Number [facility] [address] [place] [phone] * POCT Rapid COVID Ag (10/03/2024 11:13 AM EDT) [facility] Rapid COVID Ag Negative Swab 10/03/2024 11:1 3 AM EDT us Koffi Apple MD POINT OF CARE TEST ENTER/EDIT OR DERABLES Final Result * POCT rapid strep A manually resulted (10/03/2024 11:13 AM EDT) Rapid Strep A Screen Negative Negative, None Detected Swab 10/03/2024 11:1 3 AM EDT Koffi Apple MD POINT OF CARE TEST ENTER/EDIT OR DERABLES Final Result from Last 3 Months Insurance [facility] C3
== END 2024-10-03 11:52 | disposition home or self-care (01) ==
LOC: HO.HHCX 11:51
PROVIDERS: Visit Provider Emergency Medicine
DX: M25.511 Pain in right shoulder (principal); G89.29 Other chronic pain
CPT/HCPCS: 73030

== ENCOUNTER → 2024-10-03 11:51 | Outpatient (BNV) | payer OTHER, SELFPAY | PROVIDERS: Visit Provider Radiology Diagnostic Radiology | DX: M25.511 Pain in right shoulder (principal) | CPT/HCPCS: 73030 ==

== ENCOUNTER 2024-12-02 11:43 | Outpatient (REF) | payer MEDICAID, SELFPAY ==
--- OUTSIDE RECORDS SUMMARY | 2024-12-02 11:53 | XMS_ITS | Clinical Summary ---
Author Organization [facility] Address [address] 7[address] [place] [address] Care Team Providers Care Unit Operator Name Role Phone Unavailable Primary Care Provider Unavailabl e Allergies No known active allergies Medications tiZANidine (Zanaflex) 2 MG tablet Take 1 tablet (2 mg) by mouth every 6 (six) hours if needed for muscle spasms for up to 10 days. 30 tablet 10/03/2024 Active loratadine (Claritin) 10 MG tablet Take 1 tablet (10 mg) by mouth Once per day. 30 tablet 3 10/03/2024 6 Active Blood Pressure kit 1 each 2 times daily. 1 kit 10/03/2024 6 Active Active Problems Problem Noted Date Diagnosed Date Hearing impaired person, bilateral 10/03/2024 Encounters Date Type Department Care Team Description 10/27/2024 Telephone [facility] [address] [place] [address] Koffi Apple MD Referral Orthopedics 10/19/2024 Population Health Risk Score [facility] (C[facility]) Department [address] [id number] Provider, Population Health Generic 10/17/2024 Telephone [facility] [address] [place] [address] Koffi Apple MD Referral 10/12/2024 Telephone [facility] [address] [place] [address] Koffi Apple MD 10/05/2024 Telephone [facility] [address], [place] [phone] Koffi Apple MD 10/05/2024 Telephone [facility] [address] [place] [address] Koffi Apple MD 10/03/2024 10:40 AM EDT Office Visit [facility] [address] [place] [phone] Koffi Apple MD Chronic right shoulder pain [...] Description 01/11/2025 2:00 PM EDT Office Visit [facility] [address] [place] [phone] Ifrah Adair NP [address] [place] [address] Health Maintenance Due Date Last Done Comments [...] patient's age to complete this topic Meningococcal B Vaccine Aged Out No l onger eligible based on patient's age to complete [...] AM EDT Narrative 10/03/2024 1:10 PM EDT ?[facility] ?[address] ?[place] [address] ?XRay Report ? Signed ? Patient: Cisse,Shagufta ?MR#: [id number] ?? [id number] ? : 1990 ?Acct:[id number] ? Age/Sex: 33 / F ?ADM Date: 10/03/24 ? Loc: HO.HHCX ? Attending Dr: Koffi Apple MD ? Ordering Physician: KOFFI APPLE MD ?? Date of Service: 10/03/24 ?? Procedure(s): XR shoulder RT min 2V ?? Accession Number(s): [id number] ? cc: KOFFI APPLE MD ? EXAMINATION: [...] signed by Bryan Sorensen MD in OV> ?10/03/25 1308 ? DD/ 1151 ? TD/TT: 10/03/25 1200 ? Director Of Sports Medicine: ? Procedure Note Donotuseinterpreter, Image - 10/03/[address] [address] XRay Report Signed Patient: Og Cisse#: [id number] : 1990Acct:[id number] Age/Sex: 33 / FADM Date: 10/03/24 Loc: HO.HHCX Attending Dr: Koffi Apple MD Ordering Physician: KOFFI APPLE MD Date of Service: 10/03/24 Procedure(s): XR shoulder RT min 2V Accession Number(s): [id number] cc: KOFFI APPLE MD EXAMINATION: XR SHOULDER [...] 10/03/24 1308 DD/ 1151 TD/TT: 10/03/24 1200 Director Of Sports Medicine: Koffi Apple MD IMG XR PROCEDURES Final Result * Influenza B (ID NOW Rapid Molecular) (10/03/2024 11:13 AM EDT) Influenza B Negative Negative, Indeterminate [facility] Swab 10/03/2024 11:1 3 AM EDT Koffi Apple MD POINT OF CARE TEST ENTER/EDIT OR DERABLES Final Result [facility] [address] [place] [phone] * Influenza A (ID NOW Rapid Molecular) (10/03/2024 11:13 AM EDT) Influenza A Negative Negative, Indeterminate [facility] Swab 10/03/2024 11:1 3 AM EDT us Koffi Apple MD POINT OF CARE TEST ENTER/EDIT OR DERABLES Final Result [facility] [address] [place] [phone] * POCT Rapid COVID Ag (10/03/2024 11:13 AM EDT) Rapid COVID Ag Negative Swab 10/03/2024 11:1 3 AM EDT us Koffi Apple MD POINT OF CARE TEST ENTER/EDIT OR DERABLES Final Result * POCT rapid strep A manually resulted (10/03/2024 11:13 AM EDT) Pathologist [facility] Rapid Strep A Screen Negative Negative, None Detected Swab 10/03/2024 11:1 3 AM EDT us Koffi Apple MD POINT OF CARE TEST ENTER/EDIT OR DERABLES Final Result from Last 3 Months Insurance [facility] C3
== END 2024-12-02 11:44 | disposition home or self-care (01) ==
LOC: HO.SH 11:43
PROVIDERS: Visit Provider Emergency Medicine
DX: Z01.118 Encounter for examination of ears and hearing with other abnormal findings (principal); H61.21 Impacted cerumen, right ear
CPT/HCPCS: 92567

== ENCOUNTER 2025-04-27 08:27 | Outpatient (REF) | payer MEDICAID, SELFPAY ==
--- NOTE | ~2025-04-27 | XR_ITS ---
EXAMINATION: XR SHOULDER, LEFT CLINICAL INFORMATION: M25.512 - Pain in left shoulder COMPARISON: None available. TECHNIQUE: Three views of the left shoulder. FINDINGS: Normal bone mineralization. No fracture, dislocation, or suspicious bone lesion. Normal alignment. The glenohumeral joint is normal. The AC joint is normal. There is a type II acromion. No undersurface spurring. The subacromial space is preserved. Remainder of the soft tissue and bony structures appear normal. XR/XR shoulder LT min 2V IMPRESSION: Normal left shoulder. Electronically signed by: Flaquito Seymour MD 04/27/2025 01:08 PM EDT
--- OUTSIDE RECORDS SUMMARY | 2025-04-28 08:37 | XMS_ITS | Clinical Summary ---
Author Organization [employer] Address [address] [place] [address] Care Team Providers Care Voltmeter Operator Name Role Phone Unavailable Primary Care Provider Unavailabl e Allergies No known active allergies Medications tiZANidine (Zanaflex) 2 MG tablet Take 1 tablet (2 mg) by mouth every 6 (six) hours if needed for muscle spasms for up to 10 days. 30 tablet 10/03/2024 Active Blood Pressure kit 1 each 2 times daily. 1 kit 10/03/2024 Active loratadine (Claritin) 10 MG tablet TAKE 1 TABLET BY MOUTH EVERY DAY 90 tablet 12/26/2024 Active Active Problems Problem Noted Date Diagnosed Date Hearing impaired person, bilateral 10/03/2024 Social History Tobacco Use Types Packs/Day Years [...] 69 10/03/2024 10:41 AM EDT Temperature 36.8 C (98.2 F) 10/03/2024 11:12 AM EDT Respiratory Rate 18 10/03/2024 10:4 1 AM EDT Oxygen Saturation 97% 10/03/2024 10: 41 AM EDT Inhaled Oxygen Concentration - - Weight 80.6 kg (177 lb 12.8 oz) 025 10:41 AM EDT Height 142.2 cm (4' 8 ) 10/03/2024 10:4 1 AM EDT Body Mass Index 39.86 10/03/2024 10:41 AM EDT Plan of Treatment Health Maintenance Due Date Last Done Comments Depression Screening 1990 HIV Screening 1992 SDOH Screening 1992 Disability Screening 1992 Alcohol/Substance Use Screening 2004 Family Planning (PISQ) 11/19/2007 HPV Vaccines (1 - 3-dose series) 11/19/2007 Hepatitis C Screening 2010 DTaP/Tdap/Td Vaccines (1 - Tdap) 11/19/2011 Hepatitis B Vaccines (1 of 3 - 19+ 3-dose series) 11/19/2011 Pap Smear 2013 Cervical Cancer Screening 2022 HPV/Cotest 2022 COVID-19 Vaccine (3 - 2024-2 6 season) 2025 05/09/2022, 08/09/2021 Influenza Vaccine (#1) 2025 Tobacco Screening 10/03/2025 10/03/2024 Zoster Vaccines (1 [...] Years) and At-Risk Patients (6 to 49) Years Aged Out No longer eligible b ased on patient's age to complete this topic RSV under 20 months Aged Out No longe r eligible based on patient's age to complete this topic Rotavirus Vaccines Aged Out No longer eligible based on patient's age to complete this topic Insurance [facility] [address] C3
== END 2025-04-27 08:28 | disposition home or self-care (01) ==
LOC: HO.HOSX 08:27
PROVIDERS: Visit Provider Orthopaedic Surgery
DX: M25.511 Pain in right shoulder (principal); M25.512 Pain in left shoulder
CPT/HCPCS: 73030; 99202

== ENCOUNTER 2025-04-27 12:47 | Outpatient (AMB) | payer MEDICAID, SELFPAY ==
[2025-04-27 12:59] VITALS: BMI 37.0
--- NOTE | 2025-04-27 12:59 | MHC.OFFVIS ---
Vital Signs 04/27/25 12:59 Height 4 ft 8 in Weight 165 lb BMI 37.0 Intake Visit Reasons: Bilateral shoulder pain Intake Note: Shagufta is a 34-year-old okxlj-zdzr-dzsiyotd female who presents with complaints of bilateral shoulder pains, left greater than right. She describes her pains as achy in nature. The patient states that she does do quite a bit of lifting at work. She states that items over 40 lb tend to aggravate her pain the most. She denies any weakness in either upper extremity. She has tried stretching exercises which gave her mild relief. She has also tried Tylenol and anti-inflammatory medicines which gave her minimal relief. She wishes to hold off on surgery if at all possible. Allergies No Known Allergies Allergy (Verified 04/27/25 13:02) Medication List - Last Reconciled 04/27/25 by Kenan Washburn MD alcohol swabs (Alcohol Prep Pads) 1 pad topical .once a day 90 days amoxicillin 500 mg PO BID 7 days atorvastatin 10 mg PO BEDTIME 90 days blood sugar diagnostic (FreeStyle Lite Strips) Test Daily blood-glucose meter (FreeStyle Lite Meter kit) As directed cetirizine (Allergy Relief (cetirizine)) 10 mg PO DAILY PRN 90 days cholecalciferol (vitamin D3) 25 mcg PO DAILY 90 days cholestyramine (with sugar) 4 gram 4 grams PO DAILY PRN 30 days clotrimazole 1% 1 appful vaginal BEDTIME doxycycline hyclate 100 mg PO BID 5 days dulaglutide (Trulicity) 1.5 mg (0.5 mL) subcut QWEEK fluconazole 150 mg PO Q3D 4 days insulin glargine (Lantus Solostar U-100 Insulin) 10 units (0.1 mL) subcut QPM 90 days lancets (FreeStyle Lancets) Use 1 lancet once a day metformin 1,000 mg PO BID 90 days metronidazole 500 mg PO BID 7 days miconazole nitrate 2% (Miconazole-7) 1 appful vaginal BEDTIME 7 days pen needle, diabetic (1st Tier Unifine Pentips) Use 1 pen needle once a day sertraline 25 mg PO DAILY 90 days sumatriptan succinate 25 mg PO Q2-4H PRN 30 days [facility] Medical History Back pain affecting in first trimester Chronic diarrhea Hearing loss Morbid obesity with BMI of 40.0-44.9, adult Uncontrolled type 2 diabetes mellitus with hyperglycemia Surgical History History of tubal ligation History of retinal detachment History of cholecystectomy Family History Father No problems noted. Mother No problems noted. 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 Sexual orientation: Straight/Heterosexual Gender identity: Female Cognitive needs: No Hearing needs: Yes (hearing aide) Vision needs: Yes (Glasses) Female Reproductive History Menstrual Age of Menarche: 11 Physical Exam Vital Signs: BMI result Body Mass Index 37.0 Const Other: Well-nourished well-developed very friendly female awake alert and oriented x3 in no acute distress Extrem Other: Bilateral shoulder examination shows 5/5 strength with supraspinatus testing, positive impingement signs, forward flexion to 160 degrees, external rotation to 40 degrees, internal rotation to level L4, no instability Results Reviewed Results Reviewed: X-rays of the patient's bilateral shoulder show moderate acromioclavicular joint narrowing, type 2 acromion, no acute bony abnormalities Assessment & Plan Assessment & Plan (1) Bilateral shoulder pain: Code(s): M25.511 - Pain in right shoulder; M25.512 - Pain in left shoulder Plan Shagufta presents with bilateral shoulder pains, left greater than right, due to impingement syndrome. I had a lengthy discussion with the patient regarding the treatment options. She wishes to hold off on an injection for now. I did give her a prescription for a Medrol Dosepak. She will continue with her home stretching program to prevent stiffness. I did give the patient a note to bring to work stating that it is my recommendation that the patient not do repetitive lifting of greater than 40 lb. The patient will contact me prior to her follow-up appointment in 2-3 months should her symptoms worsen in any way. Feel free to call me at any time should questions regarding her orthopedic management arise. Thank you very much for asking me to see this very friendly patient. I spent 22 minutes in reviewing the patient's records and imaging studies, seeing the patient and documenting in the medical record. Orders: Orders XR shoulder LT min 2V 04/27/25 M25.512 - Pain in left shoulder Medications: New methylprednisolone (Medrol (Sidney)) PO PER PKG DIR 21 ea 0RF Coding Level of Care Code New Pt Level 3 (35700) Complex EM visit Add On G2211 Diagnoses Bilateral shoulder pain M25.511; M25.512
== END 2025-04-27 13:12 | disposition home or self-care (01) ==
LOC: HO.HOS 12:47
PROVIDERS: Visit Provider Orthopaedic Surgery
DX: M25.511 Pain in right shoulder (principal); M25.512 Pain in left shoulder
CPT/HCPCS: 99203

== ENCOUNTER → 2025-04-27 12:51 | Outpatient (BNV) | payer MEDICAID, SELFPAY | PROVIDERS: Visit Provider Radiology Diagnostic Radiology | DX: M25.512 Pain in left shoulder (principal) | CPT/HCPCS: 73030 ==